=== PATIENT | female | born 1965 | race Two or more races ===

== ENCOUNTER 2024-12-22 22:12 | Inpatient (IN) | payer MEDICAID ==
[~2024-12-22] VITALS: Ht 152.4 cm; Wt 75.3 kg
[~2024-12-22 22:12] MED LIST: ACET325T53 PO; BRIM5DRO5 LEFTEYE; DICL2.5D EACHEYE; DOCU-141 PO; DORZ10DR19 EACHEYE; HYDR-4354 PO; KETO5DRO RIGHTEYE; MAGN400O6 PO; MEGE40TA7 PO; MELA5TAB PO; MIRT-93 PO; NA P133E RC; OXYC-117 PO; PENT400T17 PO; RISP1TAB7 PO; TRAZ-252 PO; VITA1TAB23 PO
[2024-12-22] MEDS ORDERED: HYDROCODONE/APAP 10-325 MG TABLET ONE (23:03)
[2024-12-22 23:07] LABS: *OCCULT BLOOD STOOL NEGATIVE (NEGATIVE)
[2024-12-22 23:08] LABS: ASPARTATE AMINOTRANSFERASE 35.0 U/L (15-37); CREATININE 0.5 mg/dL (0.6-1.3); SODIUM SERUM 144.0 mmol/L (136-145); TOTAL PROTEIN, SERUM 5.8 g/dL (6.4-8.2); UREA NITROGEN, BLOOD 3.0 mg/dL (7-18)
[2024-12-22 23:09] LABS: PLATELET COUNT (AUTO) 358 K/uL (179-408); RED CELL DISTRIBUTION WIDTH 13.5 % (12.3-17.7); WHITE BLOOD COUNT (AUTO) 9.0 K/uL (3.8-11.8)
[2024-12-22 23:13] LABS: RED BLOOD CELL COUNT(AUTO) 2.17 MIL/uL (3.63-4.92)
[2024-12-22] MEDS: HYDROCODONE/APAP 10-325 MG TABLET PO ONE (23:13)
[2024-12-22] MEDS ORDERED: IV 0.9% SODIUM CHLORID+ 20 KCL 1,000 ML ONE (23:37)
[2024-12-22] MEDS: IV 0.9% SODIUM CHLORID+ 20 KCL 1,000 ML IV ONE (23:46)
[2024-12-23] MEDS ORDERED: ACETAMINOPHEN 325 MG TABLET PO PRN (01:45)
[2024-12-23] MEDS ORDERED: ONDANSETRON 4 MG/2 ML VIAL IV PRN (01:45)
[2024-12-23] MEDS ORDERED: REMEDY ESSENTIAL ZINC PASTE 113 GM TP PRN (01:45)
[2024-12-23] MEDS ORDERED: MAGNESIUM HYDROXIDE 30 ML LIQUID UDC PO PRN (01:45)
[2024-12-23] MEDS ORDERED: FLEET ENEMA 133 ML BOTTLE RC PRN (02:00)
[2024-12-23 07:31] VITALS: BP 135/79; TEMP 97.7; O2SAT 100
[2024-12-23 07:51] LABS: PLATELET COUNT (AUTO) 311 K/uL (179-408); RED BLOOD CELL COUNT(AUTO) 2.83 MIL/uL (3.63-4.92); RED CELL DISTRIBUTION WIDTH 17.0 % (12.3-17.7); WHITE BLOOD COUNT (AUTO) 7.8 K/uL (3.8-11.8)
[2024-12-23] MEDS ORDERED: TIMOLOL OP SCH (09:00)
[2024-12-23] MEDS ORDERED: DORZOLAMIDE OP SCH (09:00)
[2024-12-23] MEDS ORDERED: MEGESTROL ACETATE 40 MG PO SCH (09:00)
[2024-12-23] MEDS: POTASSIUM CHLORIDE 50 ML IV SCH (09:11)
[2024-12-23] MEDS: HYDROCODONE/APAP 10-325 MG TABLET PO PRN (09:11)
[2024-12-23] MEDS: PANTOPRAZOLE SODIUM 40 MG TABLET.DR PO SCH (09:11)
[2024-12-23] MEDS: PENTOXIFYLLINE 400 MG TABLET.SA PO SCH (09:12)
[2024-12-23 11:02] VITALS: BP 115/52; TEMP 98.1; O2SAT 99
[2024-12-23] MEDS ORDERED: POVI37802 TP (11:37)
[2024-12-23] MEDS ORDERED: CYAN100T44 PO (11:38)
[2024-12-23] MEDS ORDERED: BISA10SU61 RC (11:42)
[2024-12-23] MEDS ORDERED: PYRI-6 PO (11:45)
[2024-12-23 12:53] LABS: IRON, SERUM 182.0 ug/dL (50-175)
[2024-12-23 15:06] VITALS: BP 117/65; TEMP 97.6; O2SAT 96
[2024-12-23] MEDS: DORZOLAMIDE/TIMOLOL OPHT DROP 10 ML BOTTLE EACHEYE SCH (15:21)
[2024-12-23] MEDS: BRIMONIDINE 0.2% OPHT DROP 10 ML BOTTLE LEFTEYE SCH (15:22)
[2024-12-23] MEDS ORDERED: VANC1PLA IV (16:52)
[2024-12-23] MEDS: MEGESTROL ACETATE 20 MG TABLET PO SCH (17:24)
[2024-12-23 19:16] VITALS: BP 139/71; TEMP 97.4; O2SAT 98
[2024-12-23] MEDS: MIRTAZAPINE 15 MG TABLET PO SCH (20:07)
[2024-12-23] MEDS: DOCUSATE SODIUM 100 MG CAPSULE PO SCH (20:07)
[2024-12-23] MEDS: TRAZODONE 50 MG TABLET PO SCH (20:07)
[2024-12-24 04:00] VITALS: BP 129/60; TEMP 98.8; O2SAT 96
[2024-12-24 07:04] LABS: PLATELET COUNT (AUTO) 306 K/uL (179-408); RED BLOOD CELL COUNT(AUTO) 2.81 MIL/uL (3.63-4.92); RED CELL DISTRIBUTION WIDTH 17.4 % (12.3-17.7); WHITE BLOOD COUNT (AUTO) 9.9 K/uL (3.8-11.8)
[2024-12-24 07:21] VITALS: BP 116/69; TEMP 98.6; O2SAT 96
[2024-12-24 07:45] LABS: ASPARTATE AMINOTRANSFERASE 27.0 U/L (15-37); CREATININE 0.7 mg/dL (0.6-1.3); SODIUM SERUM 143.0 mmol/L (136-145); TOTAL PROTEIN, SERUM 5.5 g/dL (6.4-8.2); UREA NITROGEN, BLOOD 5.0 mg/dL (7-18)
[2024-12-24 11:16] VITALS: BP 112/65; TEMP 98.1; O2SAT 99
[2024-12-24 15:15] VITALS: BP 122/65; TEMP 98.3; O2SAT 93
[2024-12-24 19:24] VITALS: BP 145/75; TEMP 98.7; O2SAT 99
[2024-12-25 04:27] LABS: *BILIRUBIN,URIN NEGATIVE (NEGATIVE); *CLARITY,URINE CLEAR (CLEAR); *KETONES,URINE NEGATIVE (NEGATIVE); *PROTEIN,URINE NEGATIVE (NEGATIVE); *UROBILINOGEN,URINE 0.2 E.U./dl (NORMAL); LEUKOCYTE ESTERASE ,URINE NEGATIVE (NEGATIVE); NITRITE, URINE NEGATIVE (NEGATIVE); UGLUCOSE NEGATIVE (NEGATIVE)
[2024-12-25 04:32] LABS: *BLOOD, URINE TRACE INTACT (NEGATIVE); *COLOR,URINE LIGHT YELLOW (YELLOW)
[2024-12-25 04:37] LABS: SQUAMOUS EPITHELIAL CELL,UR FEW /HPF (NONE SEEN)
[2024-12-25 05:29] VITALS: BP 113/58; TEMP 98.4; O2SAT 95
[2024-12-25 08:16] LABS: CREATININE 0.5 mg/dL (0.6-1.3); SODIUM SERUM 141.0 mmol/L (136-145); UREA NITROGEN, BLOOD 3.0 mg/dL (7-18)
[2024-12-25] MEDS: MEGESTROL ACETATE 20 MG TABLET PO SCH (08:17)
[2024-12-25] MEDS: PROTEIN SUPPLEMENT (PROSTAT) 30 ML LIQUID PO SCH (08:17)
[2024-12-25 10:43] LABS: PLATELET COUNT (AUTO) 305 K/uL (179-408); RED BLOOD CELL COUNT(AUTO) 3.29 MIL/uL (3.63-4.92); RED CELL DISTRIBUTION WIDTH 17.4 % (12.3-17.7); WHITE BLOOD COUNT (AUTO) 8.6 K/uL (3.8-11.8)
[2024-12-25 11:33] VITALS: BP 119/57; TEMP 98; O2SAT 98
[2024-12-25 15:52] VITALS: BP 117/69; TEMP 98.6; O2SAT 98
[2024-12-25] MEDS: APIXABAN 2.5 MG TABLET PO SCH (16:00)
[2024-12-25] MEDS ORDERED: ACET325T53 PO (17:17)
[2024-12-25] MEDS ORDERED: HYDR-3980 PO (17:17)
[2024-12-25] MEDS ORDERED: MEGE20TA4 PO (17:17)
[2024-12-25] MEDS ORDERED: APIX2.5T PO (17:17)
== END 2024-12-25 19:47 | DRG 663 ==
LOC: ER 22:28 → TELE3 12-23 00:20 → MEDSURG3 12-24 19:55
PROVIDERS: ADMIT Registered Nurse Psychiatric/Mental Health; ATTEND Internal Medicine
PROC: 30233N1 Transfusion of Nonautologous Red Blood Cells into Peripheral Vein, Percutaneous Approach (ICD-10-PCS; principal; 2024-12-23)
PROC: 05HD33Z Insertion of Infusion Device into Right Cephalic Vein, Percutaneous Approach (ICD-10-PCS; principal; 2024-12-23)
DX: D64.9 Anemia, unspecified (principal); E43 Unspecified severe protein-calorie malnutrition; I82.412 Acute embolism and thrombosis of left femoral vein; D68.59 Other primary thrombophilia; K92.2 Gastrointestinal hemorrhage, unspecified; I82.432 Acute embolism and thrombosis of left popliteal vein; F20.9 Schizophrenia, unspecified; Z96.642 Presence of left artificial hip joint; E87.6 Hypokalemia; E66.9 Obesity, unspecified; Z68.32 Body mass index [BMI] 32.0-32.9, adult; Z74.09 Other reduced mobility; I82.442 Acute embolism and thrombosis of left tibial vein; I73.9 Peripheral vascular disease, unspecified; R94.31 Abnormal electrocardiogram [ECG] [EKG]
CPT/HCPCS: 36415; 71045; 72170; 82378; 83550; 83735; 84100; 84132; 84443; 84484; 85025; 85610; 86850; 86900; 86901; 86920; 87086; A4606; A4663; G0378; J3480; P9016